=== PATIENT | female | born 1965 | race African-American/Black ===

== ENCOUNTER 2018-12-18 16:02 | Emergency (ER) | payer BC, OTHER ==
[~2018-12-18] VITALS: Ht 157.5 cm; Wt 69.8 kg
[~2018-12-18 16:02] MED LIST: BENTYL 20 MG TA20 M1 PO; FERRO-TIME325 MG PO; NOHOMEMEDICATIONS; PHENERGAN 25 MG25 M1 PO; VICODIN 5-5001 EACH PO
[2018-12-18] MEDS ORDERED: NAPROSYN500 MG PO (17:47)
[2018-12-18] MEDS ORDERED: NORFLEX100 MG PO (17:47)
[2018-12-18 17:57] VITALS: BP 123/66
== END 2018-12-18 18:00 | disposition home or self-care (01) ==
LOC: ER 16:02
DX: S29.012A Strain of muscle and tendon of back wall of thorax, initial encounter (principal); V89.2XXA Person injured in unspecified motor-vehicle accident, traffic, initial encounter; Y93.89 Activity, other specified; Y92.89 Other specified places as the place of occurrence of the external cause; Y99.8 Other external cause status